=== PATIENT | female | born 1995 | race Caucasian/White ===

== ENCOUNTER 2017-12-27 15:01 | Outpatient (CLI) | payer BC ==
--- NOTE | 2017-12-27 17:17 | ULT ---
BILATERAL RENAL ULTRASOUND: Date: 12/27/17 INDICATION: Disorder of the ureter. FINDINGS: The right kidney measures 11.2 x 4.7 x 3.7 cm. There is mild right hydronephrosis. There are bilateral ureteral jets seen at the level of the bladder. Left kidney measures 10.0 x 5.6 x 5.4 cm. Pre-void bladder volume is 371 mL. Post-void bladder volume is 12.7 mL. IMPRESSION: 1. Mild right hydronephrosis that persists pre and post-void. There are bilateral ureteral jets demo nstrated. 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 Nuclear medicine Lasix renal scan may be helpful for additional evaluation. Alternatively, a CT urogram evaluation may be helpful. 2. Minimal post-void residual. POS: [facility]
== END 2017-12-27 15:02 | disposition home or self-care (01) ==
LOC: BICULT 15:01
PROVIDERS: ATTEND Internal Medicine Gastroenterology
DX: N28.9 Disorder of kidney and ureter, unspecified (principal); N13.30 Unspecified hydronephrosis; Z96.0 Presence of urogenital implants
CPT/HCPCS: 76770

== ENCOUNTER 2018-01-17 15:29 | Outpatient (CLI) | payer BC ==
--- NOTE | 2018-01-17 16:57 | CT ---
CT ABDOMEN AND PELVIS WITH AND WITHOUT IV CONTRAST: 01/17/18 HISTORY: Hydronephrosis. Duplicated urinary collecting systems. Prior ureteral reimplantation for reflux. FINDINGS: Lung bases are clear. Each renal collecting system, ureter, and the urinary bladder are decompressed without stone evidence. No filling defects are apparent within the urinary system on the delayed imag es. There is duplication of the right renal collecting system and to the right ureter to the level of the lumbosacral junction. No significant dilatation is evident. The right ureter implants more superior and lateral than the normal expected location, likely related to previous reimplantation. No filing d efects are apparent. The liver, spleen, adrenal glands, and pancreas are unremarkable. No enlarged lymph nodes or free flu id. 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 Previous reimplantatio n of the right ureterovesicular junction. No evidence of hydronephrosis or other complication. POS: [facility]
== END 2018-01-17 15:30 | disposition home or self-care (01) ==
LOC: BICCT 15:29
PROVIDERS: ATTEND Urology
DX: N13.30 Unspecified hydronephrosis (principal)
CPT/HCPCS: 74178